=== PATIENT | female | born 1980 | race American Indian/Alaskan Native ===

== ENCOUNTER 2018-04-05 09:50 | Emergency (ER) | payer MEDICAID ==
[2018-04-05 10:15] VITALS: BP 109/70
[2018-04-05 10:46] LABS: Bacteria,Urine 1+ /HPF (Negative); Bilirubin,Urine NEG (Negative); Blood,Urine LG (Negative); Color,Urine Yellow (Yellow); Mucus,Urine 2+ /HPF; Urobilinogen,Urine < 2.0 mg/dL (<2.0)
[2018-04-05] MEDS ORDERED: NACL 0.9% 1000 ML 1,000 ML IV ONE (10:48)
[2018-04-05] MEDS ORDERED: ZOFRAN IV ONE (10:48)
[2018-04-05] MEDS ORDERED: MORPHINE IV ONE ×2 (10:49→12:23)
[2018-04-05] MEDS ORDERED: TORADOL IV ONE (10:49)
[2018-04-05 10:53] LABS: HCG Qualitative,Urine Negative (Negative)
--- NOTE | 2018-04-05 10:53 | Emergency Department Report ---
ED Abdominal Pain HPI - General Chief Complaint: Abdominal Pain Stated Complaint: LOWER ABD PAIN Time Seen by Provider: 04/05/18 10:44 Source: patient Mode of arrival: Ambulatory Limitations: No Limitations - History of Present Illness Initial Comments: Ms. Noel is a 37-year-old female presents with severe right lower quadrant pain since this morning. She started her menses recently. 8 out of 10 pain. Sharp. She did not attempt any medications prior to arrival. She denies fever. Denies nausea. Denies vomiting. Gradual onset of symptoms. Was diagnosed with right ovarian cyst of 2015 in our emergency department. I reviewed electronic records. Ms. Noel did have CT which was normal. Pelvic ultrasound did confirm 4 cm hemorrhagic ovarian cyst right. MD Complaint: abdominal pain -: Gradual, days(s) (1) Location: RLQ Radiation: none Severity scale (0 -10): 8 Quality: sharp Consistency: constant Improves With: nothing Worsens With: nothing Context: recent antibiotic use - Related Data Previous Rx's Medication Instructions Recorded Last Taken Type Ketorolac [Toradol] 10 mg PO Q6H PRN #20 tablet 09/07/15 Unknown Rx Ondansetron [Zofran Odt] 4 mg PO QID PRN #20 tab.rapdis 09/07/15 Unknown Rx Ibuprofen 800 mg PO QID PRN #10 tablet 04/05/18 Unknown Rx Allergies Allergy/AdvReac Type Severity Reaction Status Date / Time No Known Allergies Allergy Verified 04/05/18 10:12 ED Review of Systems ROS: Stated complaint: LOWER ABD PAIN Other details as noted in HPI Comment: All other systems reviewed and negative Constitutional: denies: fever, malaise Respiratory: denies: cough Cardiovascular: denies: chest pain ED Past Medical Hx - Past Medical History Previous Medical History?: No - Surgical History Past Surgical History?: Yes Additional Surgical History: - Social History Smoking Status: Never Smoker Substance Use Type: None - Medications Home Medications: Home Medications Medication Instructions Recorded Confirmed Last Taken Type Ketorolac [Toradol] 10 mg PO Q6H PRN #20 tablet 09/07/15 Unknown Rx Ondansetron [Zofran Odt] 4 mg PO QID PRN #20 tab.rapdis 09/07/15 Unknown Rx Ibuprofen 800 mg PO QID PRN #10 tablet 04/05/18 Unknown Rx ED Physical Exam - General Limitations: No Limitations General appearance: alert, in no apparent distress - Head Head exam: Present: atraumatic, normocephalic - Eye Eye exam: Present: normal appearance - ENT ENT exam: Present: mucous membranes moist - Neck Neck exam: Present: normal inspection. Absent: tenderness, meningismus - Respiratory Respiratory exam: Present: normal lung sounds bilaterally. Absent: respiratory distress, wheezes, rales, rhonchi - Cardiovascular Cardiovascular Exam: Present: regular rate, normal rhythm. Absent: systolic murmur, diastolic murmur, rubs, gallop - GI/Abdominal GI/Abdominal exam: Present: soft, tenderness, guarding, normal bowel sounds. Absent: distended, rebound, rigid - Extremities Exam Extremities exam: Present: normal inspection - Back Exam Back exam: Present: normal inspection - Neurological Exam Neurological exam: Present: alert, oriented X3 - Psychiatric Psychiatric exam: Present: normal affect, normal mood - Skin Skin exam: Present: warm, dry, intact, normal color. Absent: rash ED Course Vital Signs 04/05/18 10:12 Temperature 98.1 F Pulse Rate 81 Respiratory 16 Rate Blood Pressure 109/70 O2 Sat by Pulse 100 Oximetry ED Medical Decision Making - Lab Data Result diagrams: 04/05/18 10:51 04/05/18 10:51 Laboratory Tests 04/05/18 04/05/18 04/05/18 10:26 10:51 10:51 WBC 7.2 RBC 4.04 Hgb 11.6 Hct 34.8 MCV 86 MCH 29 MCHC 33 RDW 13.9 Plt Count 224 Lymph % (Auto) 26.1 [place] % (Auto) 4.2 Eos % (Auto) 1.1 Baso % (Auto) 0.5 Lymph # 1.9 [place] # 0.3 Eos # 0.1 Baso # 0.0 Seg Neutrophils % 68.1 Seg Neutrophils # 4.9 Sodium 141 Potassium 4.3 Chloride 105.5 Carbon Dioxide 24 Anion Gap 16 BUN 6 L Creatinine 0.7 Estimated GFR > 60 BUN/Creatinine Ratio 9 Glucose 86 Calcium 9.0 Total Bilirubin 0.60 Direct Bilirubin < 0.2 Indirect Bilirubin 0.4 AST 13 ALT 10 Alkaline Phosphatase 62 Total Protein 6.8 Albumin 4.1 Albumin/Globulin Ratio 1.5 Lipase 18 HCG, Qual Urine Color Yellow Urine Turbidity Clear Urine pH 5.0 Ur Specific [place] 1.029 Urine Protein 30 mg/dl Urine Glucose (UA) Neg Urine Ketones Neg Urine Blood Lg Urine Nitrite Neg Urine Bilirubin Neg Urine Urobilinogen < 2.0 Ur Leukocyte Esterase Neg Urine WBC (Auto) 3.0 Urine RBC (Auto) 40.0 U Epithel Cells (Auto) 6.0 Urine Bacteria (Auto) 1+ Urine Mucus 2+ Urine HCG, Qual Negative 04/05/18 10:51 WBC RBC Hgb Hct MCV MCH MCHC RDW Plt Count Lymph % (Auto) [place] % (Auto) Eos % (Auto) Baso % (Auto) Lymph # [place] # Eos # Baso # Seg Neutrophils % Seg Neutrophils # Sodium Potassium Chloride Carbon Dioxide Anion Gap BUN Creatinine Estimated GFR BUN/Creatinine Ratio Glucose Calcium Total Bilirubin Direct Bilirubin Indirect Bilirubin AST ALT Alkaline Phosphatase Total Protein Albumin Albumin/Globulin Ratio Lipase HCG, Qual Negative Urine Color Urine Turbidity Urine pH Ur Specific [place] Urine Protein Urine Glucose (UA) Urine Ketones Urine Blood Urine Nitrite Urine Bilirubin Urine Urobilinogen Ur Leukocyte Esterase Urine WBC (Auto) Urine RBC (Auto) U Epithel Cells (Auto) Urine Bacteria (Auto) Urine Mucus Urine HCG, Qual - Medical Decision Making Ms. Noel presents with right lower quadrant pain. No evidence of appendicitis or ovarian cyst. No evidence of ovarian torsion. test is negative. I suspect dysmenorrhea. Recently began menstruation. Prescribed ibuprofen. CT abdomen and pelvis within normal limits without acute process Pelvic ultrasound within normal limits without acute process Critical care attestation.: If time is entered above; I have spent that time in minutes in the direct care of this critically ill patient, excluding procedure time. ED Disposition Clinical Impression: Right lower quadrant abdominal pain, Dysmenorrhea Disposition: TO HOME OR SELFCARE Is pt being admited?: No Does the pt Need Aspirin: No Condition: Stable Instructions: Abdominal Pain (ED), Dysmenorrhea (ED) Prescriptions: Ibuprofen 800 mg PO QID PRN #10 tablet PRN Reason: Pain , Severe (7-10) Referrals: [facility] [Outside] - 3-5 Days Forms: Work/School Release Form(ED)
[2018-04-05 11:01] LABS: Basophils % (Auto) 0.5 % (0.0-1.8); Eosinophils # (Auto) 0.1 K/mm3 (0.0-0.4); Eosinophils % (Auto) 1.1 % (0.0-4.3); Hematocrit 34.8 % (30.3-42.9); Hemoglobin 11.6 gm/dl (10.1-14.3); Lymphocytes # (Auto) 1.9 K/mm3 (1.2-5.4); Lymphocytes % (Auto) 26.1 % (13.4-35.0); Mean Corpuscular HGB Conc 33 % (30-34); Mean Corpuscular Volume 86 fl (79-97); Monocytes # (Auto) 0.3 K/mm3 (0.0-0.8); Monocytes % (Auto) 4.2 % (0.0-7.3); Platelet Count 224 K/mm3 (140-440); Red Blood Count 4.04 M/mm3 (3.65-5.03); Red Cell Distribution Width 13.9 % (13.2-15.2)
[2018-04-05 11:20] LABS: Alanine Aminotransferase 10 units/L (7-56); Albumin 4.1 g/dL (3.9-5); BUN/Creatinine Ratio 9; Blood Urea Nitrogen 6 mg/dL (7-17); Hemolysis Index 7
[2018-04-05 11:22] LABS: Bilirubin,Direct < 0.2 mg/dL (0-0.2)
--- NOTE | 2018-04-05 12:05 | Cat Scan Report ---
FINAL REPORT EXAM: CT ABDOMEN PELVIS W CON HISTORY: Abdominal Pain TECHNIQUE: CT abdomen and pelvis performed. Images extend from diaphragm to pubic symphysis. PRIORS: None. FINDINGS: The visualized aspects of the lung bases are clear. The visualized liver, spleen, pancreas, adrenal glands and kidneys demonstrate no significant abnorma lities. There is no abdominal aortic aneurysm. There is no evidence of intestinal obstruction. The appendix is normal. There are no abnormal fluid collections seen. There is no free intraperitoneal air. The bladder is unremarkable. There is no abnormal pelvic mass or fluid collections seen. IMPRESSION: There is no acute abnormality identified.
--- NOTE | 2018-04-05 14:02 | Ultrasound Report ---
FINAL REPORT EXAM: US PELVIC COMPLETE HISTORY: RLQ pain TECHNIQUE: Pelvic ultrasound performed. Transabdominal imaging. Duplex Doppler of ovaries included. PRIORS: None. FINDINGS: There is no uterine mass is seen. The uterus measures 8.3 x 4.1 x 4.2 cm. Endometrial thickness is 3.6 mm. The right ovary measures 3.7 x 2.3 x 2.7 cm. The left ovary measures 2.7 x 1.4 x 2.4 cm. I cannot confirm an abnormal adnexal mass. There is blood flow within both ovariesdemonstrated on color flow and spectral waveform imaging.. There is no free fluid in the cul-de-sac. IMPRESSION: There is no significant abnormality identified.
== END 2018-04-05 14:19 | disposition home or self-care (01) ==
LOC: ED 09:50
DX: N94.6 Dysmenorrhea, unspecified (principal)
CPT/HCPCS: 36415; 74177; 76856; 80048; 80076; 81001; 81025; 83690; 84703; 85025; 96374; 96375; 96376; 99284; J1885; J2270; J2405; J7030; Q9967; 96361